=== PATIENT | female | born 1985 | race African-American/Black ===

== ENCOUNTER 2019-02-06 13:28 | Emergency (ER) | payer MEDICAID, OTHER ==
[~2019-02-06] VITALS: Ht 160 cm; Wt 128.8 kg
[~2019-02-06 13:28] MED LIST: DOXYCYCLINE MO100 MG PO
[2019-02-06] MEDS ORDERED: VENTOLIN HFA18 GM INH (13:45)
[2019-02-06 13:58] VITALS: BP 102/62
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
[2019-02-06] MEDS ORDERED: Guaifenesin/DM 10ml syrup ORAL STA (14:05)
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
[2019-02-06] MEDS ORDERED: HYDROcodone/Acetamin 5/325 tab ORAL ONE (14:15)
--- NOTE | 2019-02-06 14:44 | Diagnostic Imaging Report ---
Indication: Reason For Exam: TRAUMA Technique: Continuous helical CT scanning of the head was performed without intravenous contrast material. Axial and coronal 5 mm sections were generated. Radiation dose was minimized using automated exposure control Dose: Total Dose Length Product - DLP 1346.[address] Dose Index - CTDIvol(s) 70.38 mGy. Comparison: None FINDINGS: There is no acute intracranial hemorrhage, mass effect or cortical edema. There is no shift of midline structures. The ventricles, cisterns and sulci are normal for age. Visualized mastoid air cells and paranasal sinuses are unremarkable. No skull fracture identified. IMPRESSION: No evidence of acute intracranial hemorrhage, mass effect or cortical edema. No acute skull fracture. The CT scanner at [facility] is accredited by the [employer] and the scans are performed using protocols designed to limit radiation exposure to as low as reasonably achievable to attain images of sufficient resolution adequate for diagnostic evaluation.
--- NOTE | 2019-02-06 15:07 | Diagnostic Imaging Report ---
Indication: Pain status post injury Technique: XRAY Knee 3v LT Comparison: None Findings: Bone mineralization within normal limits. There is no evidence of acute fracture or dislocation. Alignment and joint spaces are maintained. No suprapatellar joint effusion. Impression: No acute fracture or dislocation.
--- NOTE | 2019-02-06 15:12 | Diagnostic Imaging Report ---
Indication: Pain status post injury Technique: 3 views of the left shoulder Comparison: None Findings: Limited evaluation with suboptimal positioning. Bone mineralization appears within normal limits. No acute fractures identified. Glenohumeral and acromioclavicular joints are maintained. Imaged portions of the left lung are clear. No radiopaque foreign body. Impression: No evidence of acute fracture or dislocation.
[2019-02-06 15:26] VITALS: BP 106/72
[2019-02-06] MEDS ORDERED: NORCO 5-325 TA1 EACH ORAL (16:03)
[2019-02-06] MEDS ORDERED: ROBITUSSIN NIG237 ML PO (16:03)
[2019-02-06] MEDS ORDERED: ROBAXIN500 MG PO (16:03)
[2019-02-06 16:09] VITALS: BP 130/81
--- NOTE | 2019-02-06 16:10 | NUR ---
ER DISCHARGE NOTE: Patient is cleared to be discharged per ERMD, accompanied by family members. pt is aox4, on room air, with stable vital signs. pt was given dc and prescription instructions, pt was able to verbalize understanding, pt id band removed. pt is able to ambulate with steady gait. pt took all belongings.
== END 2019-02-06 16:11 | disposition home or self-care (01) ==
LOC: EMR 14:10
DX: S40.012A Contusion of left shoulder, initial encounter (principal); S80.02XA Contusion of left knee, initial encounter; S09.90XA Unspecified injury of head, initial encounter; Y92.410 Unspecified street and highway as the place of occurrence of the external cause; V43.52XA Car driver injured in collision with other type car in traffic accident, initial encounter; I10 Essential (primary) hypertension; J45.909 Unspecified asthma, uncomplicated
CPT/HCPCS: 70450; 99284

== ENCOUNTER 2020-02-02 21:38 | Emergency (ER) | payer OTHER ==
[~2020-02-02] VITALS: Ht 160 cm; Wt 79.4 kg
[~2020-02-02 21:38] MED LIST changes: +NORCO 5-325 TA1 EACH ORAL; +ROBAXIN500 MG PO; +ROBITUSSIN NIG237 ML PO; +VENTOLIN HFA18 GM INH
[2020-02-02 21:40] VITALS: BP 145/87
--- NOTE | 2020-02-02 21:40 | NUR ---
ED Nurse Note: Patient walked in to ER c/o cough x 5 days, no fever. AAO x4, VSS at this time.
--- NOTE | 2020-02-02 21:40 | Emergency Room Report ---
History of Present Illness General Chief Complaint: Upper Respiratory Illness Source: Patient Present Illness HPI 34-year-old female presents ED for cough. Cough is dry. Started 5 days ago. Denies fevers or chills. Denies runny nose or congestion. Denies shortness of breath. States that her daughter has a similar cough. Denies recent travel. History of asthma. Denies smoking. No other aggravating relieving factors. Denies any other associated symptoms Allergies: Coded Allergies: No Known Allergies (Unverified , 02/06/19) Patient History Past Medical History: HTN, asthma Past Surgical History: none Pertinent Family History: none Social History: Denies: smoking, alcohol use, drug use Now: No Immunizations: UTD Reviewed Nursing Documentation: PMH: Agreed; PSxH: Agreed Nursing Documentation-PMH Hx Hypertension: Yes Hx Asthma: Yes Review of Systems All Other Systems: negative except mentioned in HPI Physical Exam Sp02 EP Interpretation: reviewed, normal General Appearance: no apparent distress, alert, GCS 15, non-toxic Head: normocephalic, atraumatic Eyes: bilateral eye normal inspection, bilateral eye PERRL ENT: hearing grossly normal, normal pharynx, no angioedema, normal voice Neck: full range of motion, supple/symm/no masses Respiratory: chest non-tender, lungs clear, normal breath sounds, speaking full sentences Cardiovascular #1: regular rate, rhythm, no edema Cardiovascular #2: 2+ carotid (R), 2+ carotid (L), 2+ radial (R), 2+ radial (L) , 2+ dorsalis pedis (R), 2+ dorsalis pedis (L) Gastrointestinal: normal bowel sounds, non tender, soft, non-distended, no guarding, no rebound Rectal: deferred Genitourinary: normal inspection, no CVA tenderness Musculoskeletal: back normal, normal range of motion, gait/station normal, non- tender Neurologic: alert, motor strength/tone normal, oriented x3, sensory intact, responsive, speech normal Psychiatric: judgement/insight normal, memory normal, mood/affect normal, no suicidal/homicidal ideation Reflexes: 3+ bicep (R), 3+ bicep (L), 3+ tricep (R), 3+ tricep (L), 3+ knee (R) , 3+ knee (L) Lymphatic: no adenopathy Medical Decision Making Diagnostic Impression: Primary Impression: Upper respiratory infection Qualified Codes: J06.9 - Acute upper respiratory infection, unspecified Additional Impression: UTI (urinary tract infection) Qualified Codes: N39.0 - Urinary tract infection, site not specified ER Course Hospital Course 34-year-old female presents to ED complaining of cough. History of asthma Differential diagnoses include: URI, pharyngitis, otitis media, asthma Clinical course Patient placed in isolation tent. I wore full PPE. After initial history, physical exam reveals a female in no acute distress. Bilateral TM unremarkable. No pharyngeal erythema. No tonsillar exudates. No lymphadenopathy. lungs clear. abdomen soft. Clinical findings consistent with URI. Consideration for coronavirus. Afebrile. Vitals stable. No shortness of breath. Recommend self-isolation. We will treat symptoms with cough medication, inhaler. Patient also stating that she has been having some burning urination. We will treat empirically with antibiotics. Safe for discharge close outpatient follow-up. I will provide referrals Diagnosis - URI, UTI Stable and discharged home with Rx Keflex, albuterol, promethazine/DM. self- isolate for 14 days. Instructed to followup with PMD. Return to ED if symptoms recur or worsen Status: improved Disposition: HOME, SELF-CARE Condition: Stable Scripts Cephalexin* (KEFLEX*) 500 Mg Capsule 500 MG ORAL EVERY 6 HOURS for 7 Days, #28 CAP Prov: Roger Green MD 02/02/20 D-Methorphan Hb/Prometh Hcl* (PROMETHAZINE-DM SYRUP*) 118 Ml Syrup 5 ML ORAL Q6H PRN for For Cough, #118 ML 0 Refills Prov: Roger Green MD 02/02/20 Albuterol Sulfate (VENTOLIN HFA) 18 Gm Hfa.aer.ad 1 PUFF INH EVERY 6 HOURS, #18 GM 0 Refills Prov: Roger Green MD 02/02/20 Referrals: [facility] Patient Instructions: Upper Respiratory Infection, Adult, [id number] Additional Instructions: you may have coronavirus. you need to go home and self-isolate for 14 days. drink plenty of fluids and rest. Roger Green MD Feb 02, 2020 21:40
[2020-02-02] MEDS ORDERED: VENTOLIN HFA18 GM INH (21:42)
[2020-02-02] MEDS ORDERED: CEPHALEXIN500 MG ORAL (21:42)
[2020-02-02] MEDS ORDERED: PROMETHAZINE-D118 ML ORAL (21:42)
[2020-02-02 21:50] VITALS: BP 145/87
--- NOTE | 2020-02-02 21:50 | NUR ---
ED Nurse Note: Pt cleared by health care Provider for discharge. DC instructions/prescription was given and explained to pt and verbalized understanding of teachings. All medical deviecs such as ID band removed. Pt is AAO x4, ambulatory and left with all personal belongings.
== END 2020-02-02 22:00 | disposition home or self-care (01) ==
LOC: EDBD 21:38 → EMR 22:00
DX: J06.9 Acute upper respiratory infection, unspecified (principal); N39.0 Urinary tract infection, site not specified; I10 Essential (primary) hypertension
CPT/HCPCS: 99282